=== PATIENT | female | born 1990 | race Caucasian/White ===

== ENCOUNTER 2018-05-31 07:02 | Emergency (ER) | payer OTHER ==
[2018-05-31 08:09] LABS: ADD MAN DIFF? NO
[2018-05-31 08:11] LABS: WHITE BLOOD COUNT 22.9 10^3/ul (4.8-10.8)
[2018-05-31 08:11] LABS: ABNORMAL IP MESSAGE 1; BASOPHIL # 0.1 10^3/ul (0.0-0.1); BASOPHILS % 0.5 % (0.0-2.0); EOSINOPHILS # 0.1 10^3/ul (0.0-0.5); EOSINOPHILS % 0.5 % (0.0-7.0); HEMATOCRIT 36.2 % (37.0-47.0); LYMPHOCYTES # 1.7 10^3/ul (0.8-2.9); LYMPHOCYTES % 7.3 % (15.0-51.0); MEAN CORPUSCULAR HEMOGLOBIN 20.8 pg (29.0-33.0); MEAN CORPUSCULAR HGB CONC 33.1 g/dl (32.0-37.0); MEAN CORPUSCULAR VOLUME 62.8 fl (82.0-101.0); MEAN PLATELET VOLUME 11.3 fl (7.4-10.4); MONOCYTE # 1.1 10^3/ul (0.3-0.9); NEUTROPHIL # 19.8 10^3/ul (1.6-7.5); NEUTROPHILS % 86.3 % (39.0-77.0); PLATELET COUNT 357 10^3/UL (140-415); RED BLOOD COUNT 5.76 10^6/ul (4.20-5.40); RED CELL DISTRIBUTION WIDTH 14.6 % (11.5-14.5)
[2018-05-31 08:20] LABS: ADD UMIC YES; UR ASCORBIC ACID NEGATIVE (NEGATIVE); UR BACTERIA FEW /HPF (NONE SEEN); UR BILIRUBIN (Dip) NEGATIVE (NEGATIVE); UR BLOOD (Dip) 1+ mg/dL (NEGATIVE); UR CLARITY SLIGHTLY CLOUDY (CLEAR); UR COLOR YELLOW (YELLOW); UR GLUCOSE (Dip) NEGATIVE (NEGATIVE); UR KETONES (Dip) NEGATIVE (NEGATIVE); UR LEUKOCYTE ESTERASE (Dip) TRACE Leu/ul (NEGATIVE); UR MUCUS FEW /HPF (NONE SEEN); UR NITRITE (Dip) NEGATIVE (NEGATIVE); UR RBC 9 /HPF (0-5); UR SPECIFIC GRAVITY (Dip) 1.023 (1.003-1.030); UR SQUAMOUS EPITHELIAL CELL FEW /HPF (FEW); UR TOTAL PROTEIN (Dip) NEGATIVE (NEGATIVE); UR UROBILINOGEN (Dip) NEGATIVE (NEGATIVE); UR WBC 4 /HPF (0-5)
[2018-05-31 08:22] LABS: POSITIVE DIFF @See below
[2018-05-31 08:28] LABS: ALANINE AMINOTRANSFERASE 12 IU/L (13-69); ALBUMIN 4.6 g/dl (3.3-4.9); ALBUMIN/GLOBULIN RATIO 1.31; ALKALINE PHOSPHATASE 69 IU/L (42-121); ANION GAP 13 (5-13); ASPARTATE AMINO TRANSFERASE 19 IU/L (15-46); BILIRUBIN,INDIRECT 0.4 mg/dl (0-1.1); BILIRUBIN,TOTAL 0.4 mg/dl (0.2-1.3); BLOOD UREA NITROGEN 12 mg/dl (7-20); CALCIUM 9.5 mg/dl (8.4-10.2); CARBON DIOXIDE 25 mmol/L (21-31); CHLORIDE 101 mmol/L (97-110); CREATININE 0.78 mg/dl (0.44-1.00); Estimated GFR > 60 mL/min (>60); GLUCOSE 98 mg/dl (70-220); LIPASE 74 U/L (23-300); POTASSIUM 3.8 mmol/L (3.5-5.1); SODIUM 139 mmol/L (135-144); TOTAL PROTEIN 8.1 g/dl (6.1-8.1)
== END 2018-05-31 09:13 | disposition home or self-care (01) ==
LOC: FTE 07:02
DX: R10.9 Unspecified abdominal pain (principal); R10.2 Pelvic and perineal pain
CPT/HCPCS: 36415; 76830; 76856; 80053; 81001; 81025; 83690; 85025; 99284-25

== ENCOUNTER 2018-06-23 06:25 | Inpatient (IN) | payer OTHER ==
[2018-06-23] MEDS ORDERED: CEFAZOLIN 1 GM INJ (07:00)
[2018-06-23] MEDS: SOD CHLORIDE 0.9% 500 ML IV (07:05)
[2018-06-23 07:07] LABS: ADD MAN DIFF? NO
[2018-06-23 07:10] LABS: WHITE BLOOD COUNT 20.3 10^3/ul (4.8-10.8)
[2018-06-23 07:10] LABS: BASOPHIL # 0.1 10^3/ul (0.0-0.1); BASOPHILS % 0.6 % (0.0-2.0); EOSINOPHILS # 0.1 10^3/ul (0.0-0.5); EOSINOPHILS % 0.4 % (0.0-7.0); HEMATOCRIT 35.2 % (37.0-47.0); HEMOGLOBIN 11.5 g/dl (12.0-16.0); LYMPHOCYTES # 1.9 10^3/ul (0.8-2.9); LYMPHOCYTES % 9.4 % (15.0-51.0); MEAN CORPUSCULAR HEMOGLOBIN 20.8 pg (29.0-33.0); MEAN CORPUSCULAR HGB CONC 32.7 g/dl (32.0-37.0); MEAN CORPUSCULAR VOLUME 63.7 fl (82.0-101.0); MEAN PLATELET VOLUME 11.2 fl (7.4-10.4); MONOCYTE # 0.8 10^3/ul (0.3-0.9); MONOCYTES % 3.8 % (0.0-11.0); NEUTROPHIL # 17.3 10^3/ul (1.6-7.5); NEUTROPHILS % 85.4 % (39.0-77.0); PLATELET COUNT 378 10^3/UL (140-415); RED BLOOD COUNT 5.53 10^6/ul (4.20-5.40); RED CELL DISTRIBUTION WIDTH 14.3 % (11.5-14.5)
[2018-06-23 07:31] LABS: ALANINE AMINOTRANSFERASE 15 IU/L (13-69); ALBUMIN 4.5 g/dl (3.3-4.9); ALBUMIN/GLOBULIN RATIO 1.28; ALKALINE PHOSPHATASE 78 IU/L (42-121); ANION GAP 9 (5-13); ASPARTATE AMINO TRANSFERASE 25 IU/L (15-46); BILIRUBIN,INDIRECT 0.3 mg/dl (0-1.1); BILIRUBIN,TOTAL 0.3 mg/dl (0.2-1.3); BLOOD UREA NITROGEN 12 mg/dl (7-20); CALCIUM 8.8 mg/dl (8.4-10.2); CARBON DIOXIDE 26 mmol/L (21-31); CHLORIDE 106 mmol/L (97-110); CREATININE 0.74 mg/dl (0.44-1.00); Estimated GFR > 60 mL/min (>60); GLUCOSE 123 mg/dl (70-220); LIPASE 59 U/L (23-300); POTASSIUM 4.4 mmol/L (3.5-5.1); SODIUM 141 mmol/L (135-144)
[2018-06-23] MEDS: KETOROLAC 30 MG INJ IV ×2 (07:39→18:26)
[2018-06-23 07:47] LABS: ADD UMIC YES; UR ASCORBIC ACID NEGATIVE (NEGATIVE); UR BILIRUBIN (Dip) NEGATIVE (NEGATIVE); UR BLOOD (Dip) 1+ mg/dL (NEGATIVE); UR CLARITY SLIGHTLY CLOUDY (CLEAR); UR COLOR YELLOW (YELLOW); UR GLUCOSE (Dip) NEGATIVE (NEGATIVE); UR KETONES (Dip) NEGATIVE (NEGATIVE); UR LEUKOCYTE ESTERASE (Dip) TRACE Leu/ul (NEGATIVE); UR MUCUS FEW /HPF (NONE SEEN); UR NITRITE (Dip) NEGATIVE (NEGATIVE); UR RBC 4 /HPF (0-5); UR SQUAMOUS EPITHELIAL CELL FEW /HPF (FEW); UR TOTAL PROTEIN (Dip) NEGATIVE (NEGATIVE); UR UROBILINOGEN (Dip) NEGATIVE (NEGATIVE); UR WBC 2 /HPF (0-5)
[2018-06-23] MEDS: LEVOFLOXACIN 750MG/D5W (PMX) 150 ML IVPB (09:12)
[2018-06-23] MEDS ORDERED: ACETAMINOPHEN 325 MG TAB PO ×2 (10:00→17:00)
[2018-06-23] MEDS ORDERED: morphine 2 MG INJ IV (10:00)
[2018-06-23] MEDS ORDERED: NACL 0.9% 3 ML SYG IV (10:00)
[2018-06-23] MEDS ORDERED: DOCUSATE SODIUM 100 MG CAP PO (10:00)
[2018-06-23] MEDS: SOD CHLORIDE 0.9% 1,000 ML IV ×2 (11:02→18:59)
[2018-06-23] MEDS: metroNIDAZOLE 500 MG/NS (PMX) 100 ML IVPB ×2 (14:03→21:05)
[2018-06-23] MEDS ORDERED: PROPOFOL 100 ML (15:30)
[2018-06-23] MEDS ORDERED: LIDOCAINE 2% (SDV) 5 ML INJ (15:34)
[2018-06-23] MEDS ORDERED: ROCURONIUM 50 MG INJ (15:34)
[2018-06-23] MEDS ORDERED: ONDANSETRON 4 MG INJ (16:34)
[2018-06-23] MEDS ORDERED: DEXAMETHASONE 4 MG/ML 5 ML INJ (16:34)
[2018-06-23] MEDS ORDERED: MIDAZOLAM 1 MG/ML 2 ML INJ (16:38)
[2018-06-23] MEDS: BUPIVACAINE 0.25%/EPI (SDV) 30 ML INJ (16:50)
[2018-06-23] MEDS: LIDOCAINE 1% (MPF) 30 ML INJ (16:50)
[2018-06-23] MEDS ORDERED: HYDROmorphONE 0.5 MG/0.5 ML SYG IV (17:00)
[2018-06-23] MEDS ORDERED: SUGAMMADEX SODIUM 200 MG/2 ML VIAL IV (17:02)
[2018-06-23] MEDS ORDERED: hydrALAzine 20 MG INJ IV (17:30)
[2018-06-23] MEDS ORDERED: EPHEDrine SULFATE 50 MG/5 ML SYG IV (17:30)
[2018-06-23] MEDS ORDERED: LABETALOL HCL 20MG INJ IV (17:30)
[2018-06-23] MEDS ORDERED: MIDAZOLAM 1 MG/ML 2 ML INJ IV (17:30)
[2018-06-23] MEDS ORDERED: DIPHENHYDRAMINE 50 MG INJ IV (17:30)
[2018-06-23] MEDS ORDERED: MEPERIDINE 25 MG INJ IV (17:30)
[2018-06-23] MEDS ORDERED: METOCLOPRAMIDE 10 MG INJ IV (17:30)
[2018-06-23] MEDS ORDERED: ONDANSETRON 4 MG INJ IV (17:30)
[2018-06-23] MEDS ORDERED: ALBUTEROL 0.083% (NEB) 2.5 MG/3 ML AMP HHN (17:30)
[2018-06-23] MEDS ORDERED: FENTAnyl 50 MCG/ML VIAL IV ×2 (17:30)
[2018-06-23] MEDS ORDERED: KETOROLAC 30 MG INJ (17:48)
[2018-06-23] MEDS: FENTAnyl 50 MCG/ML VIAL IV ×4 (18:01→19:45)
[2018-06-23] MEDS: HYDROCODONE/APAP (5/325) TAB PO (20:18)
[2018-06-23] MEDS: HYDROmorphONE 0.5 MG/0.5 ML SYG IV (22:54)
[2018-06-24] MEDS: HYDROCODONE/APAP (5/325) TAB PO ×2 (00:28→05:00)
[2018-06-24] MEDS: metroNIDAZOLE 500 MG/NS (PMX) 100 ML IVPB ×3 (05:00→22:57)
[2018-06-24] MEDS: DIPHENHYDRAMINE 25 MG CAP PO ×2 (05:00→09:42)
[2018-06-24 05:23] LABS: ADD MAN DIFF? NO
[2018-06-24 05:29] LABS: ABNORMAL IP MESSAGE 1; BASOPHILS % 0.2 % (0.0-2.0); HEMATOCRIT 35.2 % (37.0-47.0); HEMOGLOBIN 11.6 g/dl (12.0-16.0); LYMPHOCYTES # 1.1 10^3/ul (0.8-2.9); LYMPHOCYTES % 8.8 % (15.0-51.0); MEAN CORPUSCULAR HEMOGLOBIN 20.7 pg (29.0-33.0); MEAN CORPUSCULAR VOLUME 62.7 fl (82.0-101.0); MEAN PLATELET VOLUME 11.9 fl (7.4-10.4); MONOCYTE # 0.3 10^3/ul (0.3-0.9); MONOCYTES % 2.4 % (0.0-11.0); NEUTROPHIL # 10.9 10^3/ul (1.6-7.5); PLATELET COUNT 401 10^3/UL (140-415); RED BLOOD COUNT 5.61 10^6/ul (4.20-5.40); RED CELL DISTRIBUTION WIDTH 14.6 % (11.5-14.5)
[2018-06-24 05:29] LABS: WHITE BLOOD COUNT 12.3 10^3/ul (4.8-10.8)
[2018-06-24 05:47] LABS: POSITIVE DIFF @See below
[2018-06-24 05:49] LABS: IRON 44 ug/dl (35-150)
[2018-06-24 05:51] LABS: ALANINE AMINOTRANSFERASE 20 IU/L (13-69); ALBUMIN 4.4 g/dl (3.3-4.9); ALBUMIN/GLOBULIN RATIO 1.22; ALKALINE PHOSPHATASE 82 IU/L (42-121); ANION GAP 10 (5-13); ASPARTATE AMINO TRANSFERASE 23 IU/L (15-46); BILIRUBIN,INDIRECT 0.4 mg/dl (0-1.1); BILIRUBIN,TOTAL 0.4 mg/dl (0.2-1.3); BLOOD UREA NITROGEN 7 mg/dl (7-20); CARBON DIOXIDE 23 mmol/L (21-31); CHLORIDE 108 mmol/L (97-110); CREATININE 0.69 mg/dl (0.44-1.00); Estimated GFR > 60 mL/min (>60); GLUCOSE 121 mg/dl (70-220); MAGNESIUM 1.9 mg/dl (1.7-2.5); POTASSIUM 4.2 mmol/L (3.5-5.1); SODIUM 141 mmol/L (135-144)
[2018-06-24 05:58] LABS: % IRON SATURATION 14 % SAT (22-52); TOTAL IRON BINDING CAPACITY 314 ug/dl (241-421)
[2018-06-24] MEDS: OXYCODONE/ACETAMINOPHEN (5/325) TAB PO ×3 (09:42→18:09)
[2018-06-24] MEDS: SOD CHLORIDE 0.9% 1,000 ML IV (09:42)
[2018-06-24] MEDS: CIPROFLOXACIN 400MG/D5W 200 ML IVPB ×2 (09:49→21:49)
[2018-06-24] MEDS: IBUPROFEN 800 MG TAB PO (21:59)
[2018-06-25] MEDS: OXYCODONE/ACETAMINOPHEN (5/325) TAB PO ×2 (00:55→11:18)
[2018-06-25] MEDS: SOD CHLORIDE 0.9% 1,000 ML IV (04:00)
[2018-06-25] MEDS: ONDANSETRON 4 MG INJ IV (05:50)
[2018-06-25] MEDS: metroNIDAZOLE 500 MG/NS (PMX) 100 ML IVPB (05:50)
[2018-06-25] MEDS ORDERED: metroNIDAZOLE 500 MG TAB PO (14:00)
[2018-06-25] MEDS ORDERED: CIPROFLOXACIN 500 MG TAB PO (18:00)
== END 2018-06-25 11:35 | disposition home or self-care (01) | DRG 343 ==
LOC: FTE 06:25 → PP2 08:45
PROC: 0DTJ4ZZ Resection of Appendix, Percutaneous Endoscopic Approach (ICD-10-PCS; principal; 2018-06-23 15:30)
DX: K35.80 Unspecified acute appendicitis (principal); K66.0 Peritoneal adhesions (postprocedural) (postinfection); D72.829 Elevated white blood cell count, unspecified; E66.3 Overweight; Z68.26 Body mass index [BMI] 26.0-26.9, adult
CPT/HCPCS: 36415; 74176; 80053; 81001; 81025; 83540; 83690; 83735; 84703; 85025; 88304; 96374; 99285-25

== ENCOUNTER 2018-10-10 16:34 | Emergency (ER) | payer SELFPAY, OTHER | END 2018-10-10 17:13 | disposition left against medical advice (07) | LOC: E/R 16:34 | DX: Z53.21 Procedure and treatment not carried out due to patient leaving prior to being seen by health care provider (principal) ==